=== PATIENT | male | born 1995 | race Caucasian/White ===

== ENCOUNTER 2024-04-09 14:07 | Emergency (ER) | payer OTHER, SELFPAY ==
[2024-04-09 14:08] VITALS: BP 152/73; PULSE 99; RESP 16; TEMP 36.6; O2SAT 99; BMI 35.8
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
--- NOTE | 2024-04-09 15:15 | RAD_ITS ---
INDICATION: pain EXAMINATION/TECHNIQUE: X-RAY - XR Neck Soft Tissue COMPARISON: No relevant prior comparison study available FINDINGS: SOFT TISSUES: Unremarkable. No radiopaque foreign body. EPIGLOTTIS: No pathologic thickening or enlargement. PROXIMAL AIRWAY: Grossly patent airway as seen on the lateral view. RAD/Neck for Soft Tissue IMPRESSION: Grossly patent airway. Electronically Signed: Diogo Wheeler MD at 15:41 EDT ,
[2024-04-09 15:45] VITALS: BP 118/73
[2024-04-09 16:04] VITALS: BP 118/73; PULSE 86; RESP 16; TEMP 36.6; O2SAT 99
== END 2024-04-09 16:06 | disposition home or self-care (01) ==
PROVIDERS: Emergency Provider Emergency Medicine; Visit Provider Emergency Medicine
DX: S06.0X0A Concussion without loss of consciousness, initial encounter (principal); R13.10 Dysphagia, unspecified; R07.0 Pain in throat; V49.40XA Driver injured in collision with unspecified motor vehicles in traffic accident, initial encounter; W22.10XA Striking against or struck by unspecified automobile airbag, initial encounter; Y92.410 Unspecified street and highway as the place of occurrence of the external cause
CPT/HCPCS: 70360; 99282